=== PATIENT | female | born 1980 | race Caucasian/White ===

== ENCOUNTER → 2018-10-28 17:15 | Outpatient (CLI) | payer SELFPAY ==
[2018-10-28 20:55] LABS: Chlamydia Trachomatis by PCR Negative (Negative); Neisserai gonorrhoeae by PCR Negative (Negative); Probe Check PASS; Sample Adequacy Control PASS; Specimen Processing Control PASS
== END ==
PROVIDERS: Visit Provider Obstetrics & Gynecology
DX: Z11.3 Encounter for screening for infections with a predominantly sexual mode of transmission (principal)
CPT/HCPCS: 87491; 87591

== ENCOUNTER → 2018-11-25 15:41 | Outpatient (CLI) | payer SELFPAY ==
[2018-11-25 17:50] LABS: Absolute Lymphocyte Count 2.12 X10^3/uL (0.83-4.51); Absolute Neutrophil Count 9.3 X10^3/uL (2.0-7.7); Basophil# 0.03 X10^3/uL; Basophil% 0.2 % (0-1); Eosinophil# 0.16 X10^3/uL; Eosinophils% 1.3 % (0-5); Hematocrit 43.3 % (37-47); Lymphocyte # 2.12 X10^3/ul (4.0); Lymphocyte % 17.2 % (19-41); Mean Corp Hgb Conc 32.3 g/dL (32-36); Mean Corpuscular Hgb 28.3 pg (27.0-32.0); Mean Corpuscular Volume 87.7 fL (81-99); Mean Platelet Vol. 10.4 fl (6.2-12.0); Monocyte# 0.64 X10^3/uL; Monocyte% 5.2 % (0-10); NRBC Flagged by Analyzer 0 % (0-5); Neutrophil # 9.28 X10^3/uL (2.7-7.7); Neutrophil % 75.5 % (47-70); Platelet Count 246 K/mm3 (150-450); RBC Distribution Width SD 48.2 fl (35.1-43.9); Red Blood Count 4.94 M/mm3 (4.2-5.4); White Blood Count 12.3 K/mm3 (4.4-11.0)
[2018-11-25 17:51] LABS: Color, Urine Yellow (Yellow); Glucose, Dipstick Normal (Normal); Ketone-Dipstick 5 mg/dl (Negative); Leukocyte Esterase-Dipstick Negative /ul (Negative); Nitrite-Dipstick Negative (Negative); Occult Blood-Urine 10 /ul (Negative); Protein-Dipstick Negative (Negative); Urine Bilirubin Dipstick Negative (Negative); Urine Clarity Cloudy (Clear); Urine Urobilinogen Normal (Normal)
[2018-11-26 02:58] LABS: Prenatal RPR NONREACTIVE (NONREACTIVE)
[2018-11-26 11:30] LABS: HIV - WCH Non-Reactive (Nonreactive); Hepatitis B Surface Antigen Non-Reactive (Nonreactive); Hepatitis C Antibody Non-Reactive (Nonreactive); Rubella IgG > 500.0 IU/mL
== END ==
PROVIDERS: Visit Provider Obstetrics & Gynecology
DX: Z34.81 Encounter for supervision of other normal pregnancy, first trimester (principal)
CPT/HCPCS: 36415; 81002; 84443; 85025; 86703; 86762; 86803; 87340

== ENCOUNTER → 2019-03-04 10:22 | Outpatient (CLI) | payer SELFPAY ==
[2019-03-04 11:12] LABS: Hematocrit 36.8 % (37-47); Hemoglobin 12.2 g/dL (12.0-15.0); Mean Corp Hgb Conc 33.2 g/dL (32-36); Mean Corpuscular Hgb 29.5 pg (27.0-32.0); Mean Corpuscular Volume 89.1 fL (81-99); Mean Platelet Vol. 9.6 fl (6.2-12.0); Platelet Count 231 K/mm3 (150-450); RBC Distribution Width CV 14.2 % (11.6-14.6); Red Blood Count 4.13 M/mm3 (4.2-5.4); White Blood Count 14.1 K/mm3 (4.4-11.0)
[2019-03-04 13:55] LABS: Glucose Challenge Gest 1H 50g 148 mg/dL (70-140)
== END ==
PROVIDERS: Referring Provider Obstetrics & Gynecology; Visit Provider Obstetrics & Gynecology
DX: Z34.90 Encounter for supervision of normal pregnancy, unspecified, unspecified trimester (principal)
CPT/HCPCS: 36415; 82950; 85027

== ENCOUNTER 2019-05-21 09:10 | Inpatient (IN) | payer SELFPAY ==
[2019-05-21] VITALS (14 sets, daily range): BP systolic 109–142; BP diastolic 55–85; PULSE 80–117; RESP 14–18; TEMP 36.4–36.9; O2SAT 92–98; BMI 50.5
[2019-05-21] MEDS: Lactated Ringers 1,000 ML 999 ML IV (09:35)
[2019-05-21 09:58] LABS: Absolute Lymphocyte Count 1.71 X10^3/uL (0.83-4.51); Absolute Neutrophil Count 11.1 X10^3/uL (2.0-7.7); Basophil# 0.03 X10^3/uL; Basophil% 0.2 % (0-1); Eosinophil# 0.16 X10^3/uL; Eosinophils% 1.1 % (0-5); Hematocrit 38.2 % (37-47); Hemoglobin 12.7 g/dL (12.0-15.0); Lymphocyte # 1.71 X10^3/ul (4.0); Lymphocyte % 12.3 % (19-41); Mean Corp Hgb Conc 33.2 g/dL (32-36); Mean Corpuscular Hgb 29.4 pg (27.0-32.0); Mean Corpuscular Volume 88.4 fL (81-99); Mean Platelet Vol. 10.1 fl (6.2-12.0); Monocyte# 0.78 X10^3/uL; Monocyte% 5.6 % (0-10); NRBC Flagged by Analyzer 0 % (0-5); Neutrophil # 11.06 X10^3/uL (2.7-7.7); Neutrophil % 79.4 % (47-70); Platelet Count 229 K/mm3 (150-450); RBC Distribution Width CV 14.6 % (11.6-14.6); RBC Distribution Width SD 46.9 fl (35.1-43.9); Red Blood Count 4.32 M/mm3 (4.2-5.4); White Blood Count 13.9 K/mm3 (4.4-11.0)
[2019-05-21] MEDS: Lactated Ringers 1,000 ML 150 ML IV (10:30)
[2019-05-21] MEDS: Sodium Citrate/Citric Acid 30 ML UDC PO (15:54)
[2019-05-21] MEDS: Cefazolin 2 GM in 0.9% Normal Saline 100 ML IV (16:05)
--- NOTE | 2019-05-21 16:12 | HP.PCM_ITS ---
History and Physical Date of Admission: 05/21/19 [facility] ANTEPARTUM RECORD - HISTORY AND PHYSICAL (05/21/2019) Name: ANKITA NICHOLSON History of This : This is a 38-year-old 2 para 1 patient who presents at 39 weeks gestation for repeat and tubal. care has been uneventful. OB Physician: CARLITOS 's Physician: PED CLIENT SUPPORT ASSOCIATE ...................................................................... : 1980 Age: 38 Address: [address] [place] [address] Phone: (H) [phone] (O) [phone] Insurance Carrier: Emergency Contact: CHRISTIANO NICHOLSON [phone] ...................................................................... Final MATTHEW: 05/28/19 By Ultrasound: 9 weeks 5 days PARITY: (G-Total Pregnancies P-Fullterm,Premature,Induced AB,Spont AB, Ectopics, Multiple,Living) MATTHEW CONFIRMATION: By LMP: 08/21/18 Initial Exam: 05/28/19 By First Ultrasound Exam: 05/28/19 Final MATTHEW: 05/28/19 OB PROBLEM LIST: 3 hour GTT normal AMA Offer testing Declines AFP, CF testing, and cfDNA testing has two cousins with Down Syndrome Hx of gallbladder problems Hx of kidney stones Lives an hour from [place] Prior CS --desires R-LTCCS--with tubal Pt had two sisters with Dwarfism, one was stillborn, and one at age 4 ALLERGIES: NKA MEDICATIONS: 28 mg iron-800 mcg tablet One pill by mouth once a day SOCIAL HISTORY: Smoking - used to smoke but quit Alcohol Use - denies drinking Diet - no particular diet Lifestyle - moderate stress lifestyle Exercise - minimal 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 Illicit Drug Use - denies use of street drugs Sexual Activity - Residence - lives with Place of - [employer] Spouse-Sig Other Name - Christiano Caalaver Spouse-Sig Other Occupation - Services -- Construction Spouse-Sig Other Phone No - [phone] Children Name(s) - Rae(18) PRIOR DELIVERY HISTORY DEL DATE GEST LAB WT LB WT OZ TYPE ANES LABOR TX 17 Jul 18 39 18 6 3 C-Sec Epidural No ANTEPARTUM FLOW CHART ____ VISIT GE RTC FU F F CO U U DATE WK MD WKS HT PN HR M SS BP ED WT CO GL D EF ST __ ____ ___ __ __ ___ __ __ __ ___ __ __ __ ___ __ 02 May 37 JMW 1 37 + + 126/84 sl 250 tr - Apr 36 JMW 1 36 V + + 112/72 sl 247 tr - ft 50 -2 05 Apr JMW 2 33 + + 108/64 sl 250 tr - 13 Mar JMW 3 31 + + 116/76 0 242 tr - Mar 08 JMW 3 27 + + 98/64 0 245 - - 08 Mar 06 JMW 3 25 + + 120/78 tr 243 - - Dec 29 JMW 4 20 + US 120/60 0 239 tr - Nov 22 JMW 4 + 108/70 0 240 - - ANTEPARTUM NOTE(S): May 13 2019: Ctxs-mild, Good FM May 06 2019: GBS Today and LARC form signed. Good FM Apr 15 2019: doing well Mar 25 2019: see note Mar 04 2019: CBC,OGCT Today,URI with Amox 500mg bid x 10 days Feb 17 2019: Glucola/Instructions Given,URI w/cough, Groin Itching Jan 06 2019: feeling well., US OK Nov 25 2018: Feeling well. NOB and visit. COMPREHENSIVE ANTEPARTUM NOTE(S): May 18 2019: H and orders taken to OB. tkg Mar 25 2019: Ankita is here for a appt. She is currently on an antibiotic for respiratory issues, not sure of the name at this time. Baby is moving good, no edema. Urine tr -. MK Nov 25 2018: Ankita is here for her NOB visit at 13 w 5 d, she is a with an MATTHEW of 05/28/2019. She and , Christiano, have a 16 month daughter at home. She shares that they had been for 16 years before getting with their daughter, and she is happy to have another baby. Her daughter was delivered by C/S in [place]; she states that she had a little high blood p ressure, so they decided to induce me, and that as soon as they gave me an epidural my daughter's heart rate went way down , so they did an emergency c- section. Past history updated. Ankita plans to have a repeat C/S at [facility], and will likely formula feed the baby. Ankita and her family live in [place], but she states that she has friends and family who live closer to [place]. She states that she is feeling well, and that nausea of resolved at about 10 weeks GA. Office practice patterns reviewed, including labs that will be collected today; urine tox screen omitted today per order of Dr. Swann. Emergencies/danger signs to report, contacting the office after hours, round ligament pain, reporting suspected UTI's, and common OTC medications approved/not approved for use during reviewed. Ankita quit smoking 2 years ago, and denies use of drugs or ETOH. Genetic Screening form completed, Christiano has two cousins with Down Syndrome, and Ankita had two sisters with Dwarfism, one was stillborn, and the other at age 4. Ankita takes a Plexus multivitamin that contains Folic Acid, and some extra Iron. Encouraged to make sure she has a DHA supplement before the beginning of her third trimester. water and dietary needs reviewed, including limiting weight gain, limiting empty calories, caloric needs, and limiting caffeine to one cup a day. Printed guide for food safety during provided with review. Encouraged physical activity, such as walking, 30 minutes, 5 x/week. Kegel exercises reviewed. Lifting restrictions discussed. Ankita states that she understands all information provided during NOB visit, and has no questions following same. AW Nov 25 2018: (f,*) Cultures negative. NOB and labs today. Is no longer feeling nauseas or having adversions. Is planning a repeat CS with Dr. Sánchez. No questions or concerns. - CH Oct 30 2019: GC and chlamydia NEG. EB Oct 28 2019: ok Oct 28 2019: Ankita presents here today for Missed Menses appointment. 37 y.o. G 2 P 1 previous smoker(quit 2 years ago) with regular menses and LMP of approximately 07-12-19 lasting her average of 4-5 days. Presents here today approximately 9 weeks 4 days with an MATTHEW of 05-29-19. Denies spotting/bleeding thus far. Having tender breasts and nausea daily. Taking OTC Vitamin and Plexus. Educational Materials given. History of all normal pap screenings with last in 2016. Repeat planned for [facility] as previous resulted in for distress in [place] in 07/2017. Medication and Allergy lists up-dated. ASHISH REVIEW OF SYSTEMS: GENERAL - Denies fever, or chills SKIN - Denies rash, new skin lesions, or change in moles EYES - Denies blurred vision, or change in visual acuity EARS - Denies ear pain, or difficulty hearing NOSE - Denies nasal congestion, discharge, or bleeding MOUTH - Denies sore throat, or difficulty swallowing NECK - Denies pain or swelling RESPIRATORY - Denies shortness of breath, cough, wheezing CARDIOVASCULAR - Denies palpitations, chest pain, orthopnea, PND, peripheral edema, syncope or claudication GASTROINTESTINAL - Denies nausea, vomiting, diarrhea, constipation, Denies abdominal pain, melena and or bright red blood GENITOURINARY - Denies dysuria, frequency of urination, urgency, or hesitancy MUSCULOSKELETAL - Denies joint or muscle pain, or back pain NEUROLOGICAL - Denies localized numbness, weakness, or tingling PSYCHIATRIC - Denies depression, anxiety, substance abuse or suicide attempts ENDOCRINE - Denies heat or cold intolerance, weight loss or gain, increasing thirst HEMATO-IMMUNOLOGIC - Denies easy bruising, bleeding, oral ulcerations or recurrent infections GENETICS SCREENING: Age 35+ years: Yes Thalassemia: No Neural Tube Defect: No Down Syndrome: Yes-'s cousins AKUA-SACHS: No Sickle Cell Disease: No Hemophilia: No Musc. Dystrophy: No Cystic Fibrosis: No-declines screening Cataño Chorea: No Mental Retardation: No Fragile X: No Other genetic: No Other defects: No SABs/still births: No Drugs since LMP: No INFECTION HISTORY: High risk AIDS: No High risk Hepatitis: No Exposed to TB: No Exposed to Herpes: No Rash/viral illness since LMP: No History of STD: No MENSTRUAL HISTORY: *Menses Amount/Duration: 3-4 daysMenses Regularity: RegularFrequency: 28Menarche (Age Onset): 10* PAST SUMMARY: PARITY: 1. Total Pregnancies............ 2 2. Full Term Pregnancies........ 1 3. Premature.................... 0 4. Abortions - Induced.......... 0 5. Abortions - Spontaneous...... 0 6. Ectopics..................... 0 7. Multiple Births.............. 0 8. Living Children.............. 1 PAST #1: Date of :.................. 07/27/17 Gestation Weeks:................ 39 Length of labor(hours):......... 18 Sex:............................ F Weight-lbs:............... 6 Weight-oz:................ 3 Type of Delivery:............... C-Sect Type of Anesthesia:............. Epidural Place of Delivery:.............. COL Treatment of Labor?:.... No Comment: IOL, HTN. DISTRESS PHYSICAL EXAMINATION General Appearence: 38 yo female in no acute distress Vital Signs: AF, VSS Heart: RRR without rubs or gallops Lungs: CTA x 2 Breasts: deferred Abdomen: gravid Pelvis: Cervix: Fingertip, 50% effaced Presentation: cephalic Station: -2 Fetus: Size: AGA Movement: present Heart: present Labs for : ANKITA CAALAVER since 08/31/2018 ORDER DATEIN DESCRIPTION VALUE UNITS RANGE A+ COMMENT TYPE AND SCREEN 05/21/19 Reason for Type AND Screen/Red Cells: SURGERY Type of Surgery: [facility]~[address] [place], [address]~ BLOOD TYPE GEL A POSITIVE N ANTIBODY SCREEN NEGATIVE N Reviewed by DARREN CBC W/DIFF, AUTOMATED 05/21/19 NOTE Original Ordering Provider: Aditya Swann WBC 13.9 K/mm3 4.4-11.0 H RBC 4.32 M/mm3 4.2-5.4 HGB 12.7 g/dL 12.0-15.0 HCT 38.2 % 37-47 MCV 88.4 fL 81-99 MCH 29.4 pg 27.0-32.0 MCHC 33.2 g/dL 32-36 RDW CV 14.6 % 11.6-14.6 RDW SD 46.9 fl 35.1-43.9 H PLT 229 K/mm3 150-450 MPV 10.1 fl 6.2-12.0 NEUT% 79.4 % 47-70 H LY% 12.3 % 19-41 L MONO% 5.6 % 0-10 EO% 1.1 % 0-5 BASO% 0.2 % 0-1 IM GRAN % 1.400 % 0.0-0.9 H IG% - Immature Granulocytes (promyelocytes, myelocytes and metamyelocytes) > 1% indicates that a LEFT SHIFT is Present. ABSOLUTE NEUT 11.1 X10 3/uL 2.0-7.7 H ABSOLUTE LYMPH 1.71 X10 3/uL 0.83-4.51 NRBC, FLAGGED 0 % 0-5 Reviewed by DARREN GLUCOSE TOLERANCE-3 HOUR 03/09/19 NOTE Original Ordering Provider: ADITYA SWANN GLUCOSE TOLERANCE-3 HOUR 3 HOUR GLUCOSE TOLERANCE Reference Range BLOOD Adult(non) Adult() FASTING _96 mg/dl <100 mg/dL 95 mg/dL 03/09/19.0801.JLN. . . 1 HOUR _193 mg/dl 70-115 mg/dL 180 mg/dL 03/09/19.1210.JLN. 2 HOUR _174 mg/dl <140 mg/dL 155 mg/dL 03/09/19.1209.JLN. 3 HOUR _77 mg/dl 70-115 mg/dL 140 mg/dL 03/09/19.JLN. URINE-GLUCOSE Fasting......... _NA (NORMAL) 03/09/19.JLN. 1 hour.......... _NA (NORMAL) 03/09/19.JLN. 2 hours......... _NA (NORMAL) 03/09/19.JLN. 3 hours......... _NA (NORMAL) 03/09/19.JLN. URINE-KETONES Fasting......... _NA (NEGATIVE) 03/09/19.JLN. 1 hour.......... _NA (NEGATIVE) 03/09/19.JLN. 2 hour.......... _NA (NEGATIVE) 03/09/19.JLN. 3 hour.......... _NA (NEGATIVE) 03/09/19.JLN. Reviewed by ADITYA GLUCOSE CHALLENGE GEST 1H 50G 03/04/19 NOTE Original Ordering Provider: Aditya Swann GLU GEST 50G 1H 148 mg/dL 70-140 H Reviewed by ADITYA CBC-COMPLETE BLOOD CNT NO DIFF 03/04/19 NOTE Original Ordering Provider: Aditya Swann WBC 14.1 K/mm3 4.4-11.0 H RBC 4.13 M/mm3 4.2-5.4 L HGB 12.2 g/dL 12.0-15.0 HCT 36.8 % 37-47 L MCV 89.1 fL 81-99 MCH 29.5 pg 27.0-32.0 MCHC 33.2 g/dL 32-36 RDW CV 14.2 % 11.6-14.6 RDW SD 46.0 fl 35.1-43.9 H PLT 231 K/mm3 150-450 MPV 9.6 fl 6.2-12.0 Reviewed by ADITYA HEPATITIS C ANTIBODY 11/25/18 NOTE Original Ordering Provider: Aditya Swann HEPATITIS C AB Non-Reactive Nonreactive Non Reactive: < 0.8 Equivocal: >/= 0.8 to < 1.0 Reactive: >/= 1.0 The CDC recommends that a reactive/equivocal HCV antibody result be followed up by the HCV Nucleic Acid Amplification test (680210) w Reviewed by ADITYA HEPATITIS B SURFACE ANTIGEN 11/25/18 NOTE Original Ordering Provider: Aditya Swann HEPB SURFACE AG Non-Reactive Nonreactive Reviewed by ADITYA HIV - [facility] 11/25/18 NOTE Original Ordering Provider: Aditya Swann HIV - [facility] Non-Reactive Nonreactive Reviewed by ADITYA RUBELLA IGG 11/25/18 NOTE Original Ordering Provider: Aditya Swann RUBELLA IGG > 500.0 IU/mL Antibody results Interpretation of Immune Status < 5 IU/ml Presumed Non-immune 5 - < 10 IU/ml Equivocal > or = 10 IU/ml Presumed Immune Reviewed by ADITYA RPR 11/25/18 NOTE Original Ordering Provider: Aditya Swann RPR NONREACTIVE NONREACTIVE Reviewed by ADITYA T AND S-NO CHARGE W/PNP 11/25/18 Reason for Type AND Screen/Red Cells: Surgery? [facility]~[address] [place], [address]~ BLOOD TYPE GEL A POSITIVE N AB SCREEN GEL NEGATIVE N Reviewed by ADITYA THYROID STIM HORMONE (TSH) 11/25/18 NOTE Original Ordering Provider: Aditya Swann TSH 0.70 uIU/mL 0.358-3.74 Reviewed by ADITYA URINALYSIS, ROUTINE (DIPSTICK) 11/25/18 NOTE Original Ordering Provider: Aditya Swann COLOR Yellow Yellow CLARITY Cloudy Clear GLUCOSE, UR Normal mg/dl Normal BILIRUBIN URINE Negative mg/dL Negative KETONE UR 5 mg/dl Negative H SP.GR. DIPSTX 1.030 1.002-1.030 PH UR 5.0 5.0 - 8.0 w PROT DIPSTX Negative mg/dl Negative UROBILI Normal mg/dl Normal NITRITE UR Negative Negative OCCULT BLOOD-UR 10 /ul Negative H LEUK ESTERASE Negative /ul Negative Reviewed by ADITYA CBC W/DIFF, AUTOMATED 11/25/18 NOTE Original Ordering Provider: Aditya Swann WBC 12.3 K/mm3 4.4-11.0 H RBC 4.94 M/mm3 4.2-5.4 HGB 14.0 g/dL 12.0-15.0 HCT 43.3 % 37-47 MCV 87.7 fL 81-99 MCH 28.3 pg 27.0-32.0 MCHC 32.3 g/dL 32-36 RDW CV 15.0 % 11.6-14.6 H RDW SD 48.2 fl 35.1-43.9 H PLT 246 K/mm3 150-450 MPV 10.4 fl 6.2-12.0 NEUT% 75.5 % 47-70 H LY% 17.2 % 19-41 L MONO% 5.2 % 0-10 EO% 1.3 % 0-5 BASO% 0.2 % 0-1 IM GRAN % 0.600 % 0.0-0.9 IG% - Immature Granulocytes (promyelocytes, myelocytes and metamyelocytes) > 1% indicates that a LEFT SHIFT is Present. ABSOLUTE NEUT 9.3 X10 3/uL 2.0-7.7 H ABSOLUTE LYMPH 2.12 X10 3/uL 0.83-4.51 NRBC, FLAGGED 0 % 0-5 Reviewed by ADITYA MARTINEZ/SATYA [facility] BY PCR 10/28/18 NOTE Original Ordering Provider: Aditya Swann [facility] PCR Negative Negative NG BY PCR Negative Negative Reviewed by KRISTIN Impression /Plan: 39-week intrauterine for repeat and tubal. All questions have been answered. Preparations in progress for delivery.
--- NOTE | 2019-05-21 17:09 | OP.PCM_ITS ---
Delivery Classification: Scheduled Final MATTHEW: 05/28/19 Gestational age: 39 Weeks and 0 Days brake liner: Grace Elkins Type of Anesthesia:: Spinal - With Duramorph Implants Used: None Date of Procedure: 05/21/19 Pre-Operative Diagnosis: Prior Section and Desires Permanent Sterilization Post-Operative Diagnosis: Prior Section and Desires Permanent Sterilization Description of Procedure: Surgeon: Corby Swann MD, FACOG Anesthesia: Everardo Lilly CRNA Anesthesia: Spinal with Duramorph Procedure: Repeat Low Transverse Cervical Caesarean Section And Bilateral Tubal Occlusion with Filshie Clips Findings: Viable female infant with Apgars of 8/9 in occiput anterior presen tation with clear amniotic fluid and normal three-vessel placenta. Indication: This is a 38-year-old who presents for her second at 39 weeks gestation. care has otherwise been uneventful. She also desires permanent sterilization. She has been counseled regarding the permanent nature of this procedure, the failure rate of 1 to 2%, and the availability of other nonpermanent control options. The patient has been counseled regarding the risk and indications of this procedure including the possibility of bleeding infection and injury to surrounding structures such as bowel bladder. All questions were answered. Procedure: Patient was taken to the operating room where after spinal anesthesia was placed, the patient was prepped and draped in usual sterile fashion and a Machuca catheter was placed. The abdomen was entered through the patient's prior Pfannenstiel incision and peritoneum was entered bluntly. After developing a bladder flap on the lower uterine segment a low transverse incision was made on the uterus and head was easily delivered onto the operative field the nose mouth and oropharynx were bulb suctioned. Subsequently a viable female was born with Apgars of 8/9. The infant was noted to cry move all extremities vigorously on the operative field. The umbilical cord was doubly clamped and ligated and infant handed to the nursery personnel who were present for the delivery. Placenta was delivered and noted to be 3 vessels and normal. Uterus was exteriorized and remaining placental tissue was removed. The uterus was then closed in 2 layers first with running locked 0 Vicryl suture followed by a second imbricating layer with 0 Vicryl suture. 0 Vicryl suture was then used in a horizontal mattress interrupted fashion to affect final hemostasis of the uterine incision line. Normal fallopian tubes and ovaries were visualized and Filshie clips were placed approximately 2 cm from the uterine fundus on each fallopian tube after identifying each fimbriated end. The uterus was returned to the pelvis. Hemostasis was noted and rectus abdominis muscles were reapproximated in the midline with interrupted Number 0 Vicryl suture in a horizontal mattress fashion. Fascia was closed with running Number 1 PDS Strata fix suture. Subcutaneous tissue was irrigated with copious amounts of saline solution and then closed with running 3-0 Vicryl suture. Skin was closed with 4-0 monocryl suture in a running subcuticular fashion. Steri strips and a Mepilex dressing were placed across the incision. The patient tolerated the procedure well and was taken to the recovery room in satisfactory condition. Sponge, needle, and instrument counts were all reportedly correct. EBL was less than 500 cc. Ancef 2 gms IV was given prior to the procedure. Spicemen to Pathology: None Complications: None Amniotic Fluid Description: Clear Placenta Disposition: [facility] Specimen(s) sent to pathology: None Drain: Machuca to straight drain Fluids Replaced: Crystalloid Cord Entanglement: None Cord Vessel Description: 3 Vessels Esitmated Blood Loss (ml): 500 cc Infant Gender: Female (1 minute): 8 (5 minute): 9 Antibiotic Given: Ancef 2 grams IV x1 Pt instructed on risks of surgery: Bleeding, Infection, Permanency, Failure Rate of 1 to 2%, Injury to surrounding structure(s) including bowel and bladder, Availability of other non-permanent control options Complications: None - Admit VTE Documentation VTE Present on Admission: Yes VTE Mechan Device Prophylaxis: SCD's VTE Pharm Prophylaxis ordered?: Yes
--- NOTE | 2019-05-21 17:17 | PCM.DCCSEC ---
Discharge Diet: No Restrictions Discharge Activity: May Not Drive - for 2 weeks, May not drive while taking narcotic pain medications., May Shower, May Take a Tub Bath - in 7 days May resume sexual activity in: 4-6 weeks Lifting Restrictions: 20 pounds Additional Activity Instructions:: Nothing in the vagina for 4-6 weeks. You may return to work/school in 6 weeks. Call your doctor if your incision/area has: Continuous Slow Oozing, Sudden Increased Bleeding, Increased Pain/ Swelling, Increased Redness, Foul Smelling Discharge Call your doctor if you observe: Fever of 101 or Higher, Inability to urinate, Inability to have a bowel movement, Using more than one pad per hour Additional Instructions: If you experience any of the following, contact your healthcare provider. Bleeding that soaks a pad every hour for 2 hours Fever 100.4 or higher Unrelieved incision or abdominal pain Swelling, redness, discharge or bleeding from your incision or episiotomy site Your incision begins to separate Problems urinating (including inability to urinate or burning while urinating). Visual changes Severe headache Flu-like symptoms Pain or redness in one of both of your breasts Pain, warmth, tenderness or swelling in your legs, especially the calf area Frequent nausea and vomiting Symptoms of depression or anxiety If you experience any of the following, call 911 or go to the nearest Emergency Room. Chest pain Problems breathing Seizure activity Partial or complete paralysis of a body part, slurred speech, weakness or drooping of the face, or a sudden inability to walk or hold your balance Allergies/Adverse Reactions: Allergies No Known Allergies Allergy (Verified 05/21/19 09:19) Medications to take at Discharge Docusate Sodium [Colace] 100 mg PO BID PRN PRN #60 cap 05/21/19 Lactobacillus Acidophilus [Probiotic] 2 ea PO DAILY 05/21/19 Oxycodone [Oxyir] 5 mg PO Q6H PRN PRN 7 Days #20 tab 05/21/19 Vits [Prenatabs FA ] 1 tab PO DAILY 05/21/19 The following prescriptions were given: Docusate Sodium [Colace] 100 mg PO BID PRN PRN #60 cap PRN Reason: Constipation Transmission Status: Received by [facility] [place] [address] JUNIOR Briones Oxycodone [Oxyir] 5 mg PO Q6H PRN PRN 7 Days #20 tab PRN Reason: Pain Score 6-10/10 Transmission Status: Received by [id number] [facility] Follow-Up: Call to make an appointment with your doctor for an incision check in 1-2 weeks. You will also need a 6 week post- follow up appointment. Test results from this visit will be discussed in further detail at your follow-up appointment, if applicable. Please Follow Up With: Corby Swann MD - [phone] When: Call to make an appointment for an incision check in 2 weeks. Primary Care Physician: Care Physician,No Primary [Primary Care Provider] -
[2019-05-21] MEDS: Oxytocin 30 units/NS 500 ml 30 UNITS/500 ML IV.SOLN 167 UNITS IV (17:37)
[2019-05-21] MEDS: Lactated Ringers 1,000 ML 100 ML IV (20:51)
[2019-05-21] MEDS: Ketorolac 30 MG/ML Syringe IV (23:39)
[2019-05-22] VITALS (13 sets, daily range): BP systolic 91–154; BP diastolic 45–89; PULSE 77–96; RESP 16–18; TEMP 36.2–36.8; O2SAT 95–97
[2019-05-22] MEDS: Cefazolin 1 GM/50 ML BAG IV ×2 (00:18→07:59)
[2019-05-22] MEDS: Ketorolac 30 MG/ML Syringe IV ×3 (05:03→17:49)
[2019-05-22 05:35] LABS: Hematocrit 34.9 % (37-47); Hemoglobin 11.6 g/dL (12.0-15.0); Mean Corp Hgb Conc 33.2 g/dL (32-36); Mean Corpuscular Hgb 29.8 pg (27.0-32.0); Mean Corpuscular Volume 89.7 fL (81-99); Mean Platelet Vol. 9.8 fl (6.2-12.0); Platelet Count 192 K/mm3 (150-450); RBC Distribution Width CV 14.3 % (11.6-14.6); RBC Distribution Width SD 46.5 fl (35.1-43.9); Red Blood Count 3.89 M/mm3 (4.2-5.4); White Blood Count 13.5 K/mm3 (4.4-11.0)
[2019-05-22] MEDS: Enoxaparin 40 MG/0.4 ML Syringe SC (09:54)
--- NOTE | 2019-05-22 11:15 | PCM.PN.OB ---
Subjective: Patient without complaints. Breast-feeding initially but now bottlefeeding. Minimal vaginal bleeding. Tolerating diet well. Denies flatus. Objective: Wound covered with Mepilex dressing is dry without blood on bandage. Good urine output. Hemoglobin okay. - Physical Exam Vitals/I&O's: Vital Signs Temp Pulse Resp BP Pulse Ox 97.5 F L 91 16 99/45 L 96 05/22/19 08:01 05/22/19 09:53 05/22/19 09:53 05/22/19 08:01 05/22/19 09:53 Oxygen Delivery Method Room Air Weight: 250 lb 0.067 oz Body Mass Index (BMI) 50.5 Intake and Output for Last 24 Hours 05/20/19 05/21/19 05/22/19 23:59 23:59 23:59 Intake Total 2360.75 / 2360.75 930 / 930 Output Total 300 / 300 900 / 900 Balance 2060.75 / 2060.75 30 / 30 Laboratory Results 05/21/19 09:35: Blood Type A POSITIVE, Antibody Screen NEGATIVE 05/22/19 05:10: WBC 13.5 H, RBC 3.89 L, Hgb 11.6 L, Hct 34.9 L, MCV 89.7, MCH 29.8, MCHC 33.2, RDW Std Deviation 46.5 H, RDW Coeff of Lilo 14.3, Plt Count 192, MPV 9.8 Current Medications Acetaminophen (Tylenol) 1,000 mg PO Q8H PRN PRN Reason: Pain Score 1-3/10 Bisacodyl (Dulcolax) 10 mg RECTAL UD PRN PRN Reason: If no BM Diphenhydramine HCl (Benadryl) 25 mg PO Q6H PRN PRN PRN Reason: ITCHING Stop: 05/22/19 17:36 Enoxaparin Sodium (Lovenox) 40 mg SC DAILY ULISES Last Admin: 05/22/19 09:54 Dose: 40 mg Documented by: Hydrocortisone (Hytone) 1 applic TOPICAL TID PRN PRN; Protocol PRN Reason: Discomfort Naloxone HCl 4 mg/ Dextrose 504 mls @ 0 mls/hr IV .Q0M PRN; Protocol PRN Reason: Respiratory depression Ibuprofen (Motrin) 600 mg PO Q6H PRN PRN PRN Reason: Pain Score 1-3/10 Ketorolac Tromethamine (Toradol (Bkc)) 30 mg IV Q6 ULISES Stop: 05/23/19 12:01 Last Admin: 05/22/19 05:03 Dose: 30 mg Documented by: Methylergonovine Maleate (Methergine) 0.2 mg IM X1 PRN PRN Reason: Uterine Atony Naloxone HCl (Narcan) 0.02 mg IV Q1M PRN PRN Reason: RR <10 and pt unresponsive Ondansetron HCl (Zofran) 4 mg IV Q4H PRN PRN PRN Reason: Nausea Oxycodone HCl (Oxyir) 5 - 10 mg PO Q4H PRN PRN PRN Reason: Pain Score 4-10/10 Prochlorperazine Edisylate (Compazine Iv) 10 mg IV Q6H PRN PRN PRN Reason: NAUSEA Senna/Docusate Sodium (Senokot-S, Jmuana-Colace) 0 tablet PO DAILY PRN PRN Reason: Constipation Simethicone (Mylicon) 80 mg PO PCHS PRN PRN Reason: Indigestion/stomach pain Sodium Chloride () 5 - 15 ml IV UD PRN PRN Reason: SALINE FLUSH Medical Necessity - Tobacco Use Smoking Status: Former smoker Assessment/Plan Doing well postoperative day #1 status post repeat section and tubal. Continuing present care. Anticipate release to home tomorrow.
[2019-05-22] MEDS: 0.9% Saline Lock 10 ML Syringe IV (11:36)
[2019-05-23] MEDS: 0.9% Saline Lock 10 ML Syringe IV ×2 (00:34→05:42)
[2019-05-23] MEDS: Ketorolac 30 MG/ML Syringe IV ×2 (00:34→05:41)
[2019-05-23 02:20] VITALS: BP 107/65; PULSE 79; RESP 16; TEMP 36.8
[2019-05-23 08:12] VITALS: BP 114/77; PULSE 93; RESP 16; TEMP 36.7; O2SAT 96
--- NOTE | 2019-05-23 11:27 | PCM.PN.OB ---
Subjective: Patient without complaints. Tolerating diet well. Positive flatus. Pain well controlled. Minimal vaginal bleeding. Wants to go home today. Objective: Mepilex dressing is clean, dry, intact. Good urine output. - Physical Exam Vitals/I&O's: Vital Signs Temp Pulse Resp BP Pulse Ox 98.1 F 93 16 114/77 96 05/23/19 08:12 05/23/19 08:12 05/23/19 08:12 05/23/19 08:12 05/23/19 08:12 Oxygen Delivery Method Room Air Weight: 250 lb 0.067 oz Body Mass Index (BMI) 50.5 Intake and Output for Last 24 Hours 05/21/19 05/22/19 05/23/19 23:59 23:59 23:59 Intake Total 2360.75 / 2360.75 930 / 930 Output Total 300 / 300 1100 / 1100 Balance 2060.75 / 2060.75 -170 / -170 Current Medications Acetaminophen (Tylenol) 1,000 mg PO Q8H PRN PRN Reason: Pain Score 1-3/10 Bisacodyl (Dulcolax) 10 mg RECTAL UD PRN PRN Reason: If no BM Enoxaparin Sodium (Lovenox) 40 mg SC DAILY ULISES Last Admin: 05/22/19 09:54 Dose: 40 mg Documented by: Hydrocortisone (Hytone) 1 applic TOPICAL TID PRN PRN; Protocol PRN Reason: Discomfort Naloxone HCl 4 mg/ Dextrose 504 mls @ 0 mls/hr IV .Q0M PRN; Protocol PRN Reason: Respiratory depression Ibuprofen (Motrin) 600 mg PO Q6H PRN PRN PRN Reason: Pain Score 1-3/10 Methylergonovine Maleate (Methergine) 0.2 mg IM X1 PRN PRN Reason: Uterine Atony Naloxone HCl (Narcan) 0.02 mg IV Q1M PRN PRN Reason: RR <10 and pt unresponsive Ondansetron HCl (Zofran) 4 mg IV Q4H PRN PRN PRN Reason: Nausea Oxycodone HCl (Oxyir) 5 - 10 mg PO Q4H PRN PRN PRN Reason: Pain Score 4-10/10 Prochlorperazine Edisylate (Compazine Iv) 10 mg IV Q6H PRN PRN PRN Reason: NAUSEA Senna/Docusate Sodium (Senokot-S, Jumana-Colace) 0 tablet PO DAILY PRN PRN Reason: Constipation Simethicone (Mylicon) 80 mg PO PCHS PRN PRN Reason: Indigestion/stomach pain Last Admin: 05/22/19 19:40 Dose: 80 mg Documented by: Sodium Chloride () 5 - 15 ml IV UD PRN PRN Reason: SALINE FLUSH Last Admin: 05/23/19 05:42 Dose: 10 ml Documented by: Medical Necessity - Tobacco Use Smoking Status: Former smoker Assessment/Plan Doing well postoperative day #2 status post repeat and bilateral tubal occlusion with Filshie clips. Will remove Mepilex dressing on her own during the next several days. Will discharge to home with routine instructions.
[2019-05-23] MEDS: Enoxaparin 40 MG/0.4 ML Syringe SC (11:47)
[2019-05-23] MEDS: Ibuprofen 600 MG Tablet PO (12:04)
== END 2019-05-23 11:35 | disposition home or self-care (01) | DRG 785 ==
PROVIDERS: Admitting Provider Obstetrics & Gynecology; Referring Provider Obstetrics & Gynecology; Visit Provider Obstetrics & Gynecology
PROC: 10D00Z1 Extraction of Products of Conception, Low, Open Approach (ICD-10-PCS; CPT 59514; principal; 2019-05-21 11:45)
DX: O34.211 Maternal care for low transverse scar from previous cesarean delivery (principal); Z37.0 Single live birth; Z3A.39 39 weeks gestation of pregnancy; Z30.2 Encounter for sterilization; Z82.79 Family history of other congenital malformations, deformations and chromosomal abnormalities; Z87.891 Personal history of nicotine dependence
CPT/HCPCS: 85025; 85027; 86850; 86900; 86901; 99218; J7120; A4216; G0378; J2405

== ENCOUNTER → 2019-07-22 | Outpatient (CLI) | payer SELFPAY ==
[2019-05-21 09:25] VITALS: BMI 50.5
[2019-07-28 05:20] LABS: HPV Reflexed? NOT INDICATED
== END | disposition home or self-care (01) ==
LOC: LABSPEC 16:08
PROVIDERS: Referring Provider Obstetrics & Gynecology; Visit Provider Obstetrics & Gynecology
DX: Z12.4 Encounter for screening for malignant neoplasm of cervix (principal)
CPT/HCPCS: 88175; G0145

== ENCOUNTER 2023-12-26 05:50 | Day surgery (SDC) | payer OTHER, SELFPAY ==
[2023-12-26] VITALS (9 sets, daily range): BP systolic 124–148; BP diastolic 83–93; PULSE 79–108; RESP 16–18; TEMP 36.4–37.2; O2SAT 93–100; BMI 51.6
[2023-12-26] MEDS: Lactated Ringers 1,000 ML 15 ML IV (06:15)
--- NOTE | 2023-12-26 06:20 | EKG12_ITS ---
Test Reason : PREOP Blood Pressure : */* mmHG Vent. Rate : 86 BPM Atrial Rate : 86 BPM P-R Int : 126 ms QRS Dur : 74 ms QT Int : 382 ms P-R-T Axes : 35 -4 21 degrees QTcB Int : 457 ms Normal sinus rhythm Minimal voltage criteria for LVH, may be normal variant ( R in aVL ) Borderline ECG No previous ECGs available Confirmed by ISSA BARBOSA, THI ([id number]), traffic control flagger LEIGH ANN MAJANO ([id number]) on 12/30/2023 8:18:54 A M Referred By: Ana Goldstein Confirmed By: THI PARSONS MD
[2023-12-26 06:24] LABS: Internal QC Validated? YES +Cl - CLEAR BKGD; Pregnancy, Urine Negative Negative
--- NOTE | 2023-12-26 06:58 | PCM.HP.BLA ---
History and Physical Date of Admission: 12/26/23 Date of Service: 12/04/23 MR#: [id number] Acct: [id number] Name: ANKITA ELMORE Rep #: [id number] : 1980 Provider: Dr. Ana Goldstein MD Age/Sex: 42/F Location: [facility] Status: Signed Intake Vital Signs 12/03/2408:21 Height 4 ft 11 in Weight: 257 lb BMI 51.9 BP 124/91 H Blood Pressure Location Rt brachial Position Sitting Respiration 17 Pulse 92 Pulse Source Monitor Temp 97.2 F L Temp Source Temporal Pulse Oximetry (%) 98 Oxygen Delivery Method room air Intake Visit Reasons: UMBILICAL HERNIA Chief Complaint: umbilical hernia Is patient in pain?: No Allergies No Known Allergies Allergy (Verified 12/04/23 09:23) Medications ?Medication ?Instructions ?Recorded ?Confirmed ?Type docusate sodium 100 mg capsule 100 mg PO BID PRN PRN Constipation 05/21/19 Rx #60 caps plexus PO 12/04/23 History PFSH Surgical History (Updated 12/04/23 @ 10:[address] Ana Goldstein MD) delivery delivered Family History (Updated 12/04/23 @ 09:20 by Abena Varner) Father DiabetesMother HypertensionBrother Hypertension Social History (Updated 12/04/23 @ 09:21 by Abena Varner) Smoking Status: Former smoker alcohol intake: current alcohol intake frequency: holidays/special occasions only HPI HPI HPI: 42-year-old female presents due to umbilical hernia. Patient states she has had a spot for years but the last 6 months been causing her more discomfort. Patient states that discomfort sometimes we off to the left of the umbilicus. Patient is able to reduce but sometimes it takes a little while to get it in. Patient does have some nausea sometimes with the pain denies any vomiting, patient is having bowel function daily. Only abdominal surgery is ROS General General: No weight change, appetite, fatigue, colon cancer or breast cancer HEENT HEENT: No difficulty swallowing, eye injury, eye surgery, swollen glands or hoarseness Endo Endocrine: No thyroid disease, diabetes mellitus, thyroid cancer, Hair loss, heat intolerance or cold intolerance Skin Skin: No rash or changing moles Musc Musculoskeletal: No back problems, arthritis, rheumatoid arthritis, gout or joint pain Cardio Cardiovascular: No murmur, pacemaker, heart disease, atrial fibrillation, high blood pressure, heart attack, heart stent, palpitations, shortness of breat with exertion or chest pain Psych Psychiatric: No depression, anxiety or hearing voices Resp Respiratory: No shortness of breath, No sleep apnea, No cough, No COPD, No asthma, No emphysema and No wheezing Gastro Gastrointestinal: Yes abdominal pain, No nausea or vomiting, No diarrhea, No constipation, No blood in stool, No acid reflux, No hemorrhoids, No ulcers, Yes gallbladder problem and No black,tarry stools Jose Hematologic: No blood thinners, No blood disorders, No bleeding, No anemia and No blood clots Neuro Neurologic: No numbness and No tingling Exam Const General: cooperative, healthy appearing, comfortable and no acute distress Nutritional Appearance: obese HENMT Head: normocephalic and atraumatic Neck Neck: supple Resp Effort & Inspection: normal respiratory effort Cardio Rate: regular rate GI Inspection: non-distended Palpation: soft, hernia umbilical (Reducible about 1 cm) and nontender Skin General: no rashes or lesions noted Neuro General: CN's II-XI intact bilaterally Extrem General: normal to inspection Psych Mental Status: mental status grossly normal Attitude: cooperative Assessment and Plan Assessment and Plan (1) Umbilical hernia: Status: Acute Plan Plan to do an open umbilical hernia repair with mesh. Reviewed the procedure with the patient including the risks, including but not limited to infection, bleeding, injury to the small bowel, and recurrence. All questions were answered. Ana Goldstein M.D. Pager: [phone] [facility] [address] [place] [address], [address] [place] [address] Office: [phone] Coding Level of Care Code Off vis,new,level 3 Diagnoses Umbilical hernia K42.9 12/04/23 1005 <Electronically signed by Ana Goldstein MD> Date Ana Goldstein MD
--- NOTE | 2023-12-26 07:02 | PRE.ANES_ITS ---
ASA Classification* ASA Classification ASA Classification: 3 Assessment & Plan Anesthesia* Anesthesia Assessment Anesthesia Assessment: Discussed sedation and/or anesthesia options, risks, benefits, and alternatives with patient/parents/legal guardian/POA. Questions invited. The patient/parents/legal guardian/POA seems to understand and agrees to proceed with anesthesia plan. Reviewed the physical assessment, medical history, allergy history and patient home medications list prior to surgery/procedure/anesthetic and documented any changes. Performed airway and anesthesia risk assessments. Anesthesia Type Anesthesia Type: General Anesthesia Focused Assessment* Temperature: 98.9 F Pulse Rate: 87 Blood Pressure: 148/90 Respiratory Rate: 16 Pulse Ox: 100 Airway Assessment Mouth opens: >3 cm Mallampati Score: II Focused Labs Anesthesia Preop lab: CBC WBC 13.5 K/mm3 (4.4-11.0) H 05/22/19 05:10 RBC 3.89 M/mm3 (4.2-5.4) L 05/22/19 05:10 Hgb 11.6 g/dL (12.0-15.0) L 05/22/19 05:10 Hct 34.9 % (37-47) L 05/22/19 05:10 Plt Count 192 K/mm3 (150-450) 05/22/19 05:10 CHEMISTRY Potassium Pending 12/26/23 06:30 Sodium Pending 12/26/23 06:30 BUN Pending 12/26/23 06:30 Creatinine Pending 12/26/23 06:30 Glucose Pending 12/26/23 06:30 TSH 0.70 uIU/mL (0.358-3.74) 11/25/18 16:10 COAG Urine Test Negative Negative 12/26/23 06:10 Pre-Assessment Diagnosis/Proposed Procedure Planned Operative Procedure(s): OPEN UMBICIAL HERNIA REPAIR WITH MESH Anesthesia History 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 When Was Last Pacemaker Check QUESTION #4 FULL TEXT: You/Your Family Experience fever (hyperthermia) with Anesthesia Last Oral Intake Last Oral intake: Last Oral Intake NPO since 23:00 12/26/23 06:35 Meds taken in AM with sips of water? Meds patient instructed to take am of surgery PONV PONV - b2b sales professional: PONV - b2b sales professional Female Yes 12/15/23 14:09 HX of Motion Sickness Yes 12/15/23 14:09 HX of N/V After Surgery No 12/15/23 14:09 Non-Smoker Yes 12/15/23 14:09 Duration of Surgery greater Yes 12/15/23 14:09 than 60 minutes Number of Risk Factors 4 12/15/23 14:09 PONV Score Severe Risk 12/15/23 14:09 Height & Weight Height & Weight: Anesthesia: Height & Weight Height 4 ft 11 in 12/26/23 06:35 Weight: 116 kg 12/26/23 06:35 Body Mass Index (BMI) 51.6 12/26/23 06:35 Respiratory Assessment Respiratory Assessment - b2b sales professional: Respiratory Tract Infection Hx - b2b sales professional Hx Respiratory Tract Infection No 12/15/23 14:09 STOP Sleep Apnea STOP Sleep Apnea - b2b sales professional: STOP Sleep Apnea - b2b sales professional Hx Hypertension No 12/15/23 14:09 Hx Sleep Apnea No 12/15/23 14:09 CPAP BIPAP Do you snore loudly (louder Yes 12/15/23 14:09 than talking or can be heard Do you often feel tired/ No 12/15/23 14:09 fatigued/ sleepy during daytime? Has anyone observed you stop No 12/15/23 14:09 breathing during sleep? STOP Results Negative 12/15/23 14:09 QUESTION #5 FULL TEXT : Do you snore loudly (louder than talking or can be heard through closed doors)? 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 Specify any problems Hx of Preganancy in last 3 No 12/15/23 14:09 Months Nurse Filling Out Transfusion DSCHRIBER 12/15/23 14:09 & Questions: Date: 12/15/23 12/15/23 14:09 Time: 14:11 12/15/23 14:09 Patient unable to answer at this time (ie. confused, unrespo /Reproduction History /Reproductive History - b2b sales professional: /Reproductive Hx- b2b sales professional Hx Now No 12/15/23 14:09 Gestational Age (in weeks): EDC: Hx Hx Para Hx Section SAB No 12/15/23 14:09 Active Medications Active Medications: Current Medications Generic Name Dose Route Start Last Admin Trade Name Freq PRN Reason Stop Dose Admin Cefazolin Sodium 3 gm/ N/A 30 mls @ 600 mls/hr 12/26/23 07:30 IV 12/26/23 07:32 PREOP ONE Lactated Ringer's 1,000 mls @ 15 mls/hr 12/26/23 06:15 IV 12/31/23 19:34 .Q48H [facility] Protocol PFSH Medical History Wears glasses Wears partial dentures Wears dentures Restless legs Shortness of breath on exertion Non-smoker History of edema Home Medications ?Medication ?Instructions ?Recorded ?Last Taken ?Type docusate sodium 100 mg capsule 100 mg PO BID PRN PRN Constipation 05/21/19 Unknown Rx #60 caps plexus 2 tab PO TID 12/04/23 Unknown History Allergy/AdvReac Type Severity Reaction Status Date / Time No Known Allergies Allergy Verified 12/26/23 06:34 Family History Father Diabetes Mother Hypertension Brother Hypertension Surgical History delivery delivered Social History Smoking Status: Never smoker alcohol intake: current alcohol intake frequency: holidays/special occasions only Review of Systems (Anesthesia) ROS Narrative System reviewed and no additional complaints, except as documented.
[2023-12-26 07:15] LABS: Anion Gap 5 (5-15); BUN 16 mg/dL (7-18); BUN/Creat Ratio 20.6 RATIO (10-20); Calcium,Total 9.3 mg/dL (8.5-10.1); Chloride 108 mmol/L (98-107); Creatinine, Serum 0.78 mg/dL (0.55-1.02); EST Glomerular Filtration Rate 86 mL/min (>60); Est Glom Filt Rate - Afr Amer 104 mL/min (>60); Estimated Creatinine Clearance 107.09 ml/min; Glucose 99 mg/dL (74-106); Potassium 3.6 mmol/L (3.5-5.1); Sodium Level 142 mmol/L (136-145)
[2023-12-26] MEDS: Cefazolin 3 GM in Syringe 1 EACH IV (07:30)
--- NOTE | 2023-12-26 07:30 | HERN_PTH ---
PATIENT: ANKITA ELMORE LOC: [facility] [place] U#:[id number] AGE/SX: 43/F ROOM: RE12/26/[address]: Dr. Ana Goldstein MD : 1980 BED: DIS: 12/26/2023 SPEC #: [id number] RECD: 12/26/23 09:09 STATUS: DENY JAVON #: [id number] KIT: 12/26/23 07:[address]: Ana Goldstein DEPT: SURGICAL PATHOLOGY RECD BY: Hali Laureano ENTERED: 12/26/23 10:19 SP TYPE: Hernia OTHR DR: SKYLAR Bynum Tissues: HERNIA Procedures: Surgery Specimen Level II HEADER OPERATION: Hernia, open umbilical repair with mesh PRE-OP DIAGNOSIS: Umbilical hernia TISSUE SUBMITTED: Hernia sac and contents MICROSCOPIC DIAGNOSIS Hernia sac and contents: Fragments of fibroadipose and fibroconnective tissue, consistent with hernia sac with reactive changes. SJ.mr 12/29/2023 MICROSCOPIC DESCRIPTION Slides are reviewed. GROSS DESCRIPTION Received in fixative is one container labeled with the patient's name and designated Hernia sac and contents. The specimen consists of three variable sized pieces of pink-yellow soft tissue measuring in aggregate 6.5 x 4.0 x 1.5cm. Sections do not reveal any mass lesions. Production Lead sections are submitted in one cassette. 12/26/2023 TC:5 CPT:70706
[2023-12-26] MEDS: Bupivacaine Mpf 0.5% 30 ML VIAL (08:28)
--- NOTE | 2023-12-26 08:28 | PCM.OPRPT ---
Operative Report (Standard) Operative Information Surgery/Procedure Performed: Open umbilical hernia pair of mesh Surgeon: Ana Goldstein Date of Procedure: 12/26/23 Procedure Start Time: 07:49 Procedure Stop Time: 08:44 Pre-Operative Diagnosis: Umbilical hernia Post-Operative Diagnosis: Same Select all DRAINS/GRAFTS/IMPLANTS that apply: Prosthetic device Prosthetic device details: Ventralex ST hernia patch 4.3 cm Lot [id number] Type of Anesthesia: General/Supplemental Special Medications: Ancef 3 g IV x 1 Estimated Blood Loss: < 10 cc Specimen collected: Yes Description of specimen(s) removed: Hernia sac/contents Description of surgery: Patient was brought into the room placed supine on the operating table. Correct patient, procedure, site, positioning, special, was verified prior to procedure. General anesthesia was induced. The abdomen was prepped draped in usual sterile fashion. A curvilinear incision was made below the umbilicus with a 15 blade scalpel. This was deepened with electrocautery. A hemostat was used to go around the stalk of the umbilicus and Metzenbaum scissors was used to carefully divide the hernia sac from the skin of the umbilicus. Hernia sac was excised and sent to pathology. Peritoneum sac was closed with 2-0 Vicryl. The fascia around the hernia defect was cleared and the hernia defect measured 1.1 cm x 1.[address] hernia patch 4.3 cm was selected. This was secured laterally at its tails with 1 Prolene horizontal mattress suture. The hernia defect was closed with two [id number] 1 Prolene. The wound was irrigated with saline. Hemostasis was assured. The skin of the umbilicus was secured to the fascia using 3-0 Vicryl suture interrupted. The incision was closed with 3-0 Vicryl subdermal interrupted sutures and the skin was closed with interrupted 4-0 Monocryl sutures. Steri-Strips and Tegaderm and OpSite were placed over the incision once sterile cotton balls were placed in the umbilicus. Patient was extubated. Patient tolerated procedure well and was taken to the postanesthesia care unit in stable condition. Surgical Findings: Reducible umbilical hernia Sewage Screen Operator supervisor brake repair: Yes Hydroelectric Systems Technician: Batool Carpio Tasks completed by clinical laboratory assistant: Opening & closing Complications Complications: No
--- NOTE | 2023-12-26 08:31 | DCINST_ITS ---
Discharge Instructions Diet Discharge Diet: Light diet - advance as tolerated Activity Discharge Activity: May Not Drive (while taking narcotic pain medications.) and May Shower (If showering-- take Ziploc bag and tape off the surgery site x 5 days; otherwise lower shower and upper sponge bath. After 5 days okay to get incision wet.) May shower in (days): 1 Lifting Restrictions: no lifting >20 lbs x 2 wks, no strenuous exercise for 4 wks Dressing / Incision Call your doctor if your incision/area has: Continuous Slow Oozing, Sudden Increased Bleeding, Increased Pain/ Swelling, Increased Redness, Foul Smelling Discharge and Swelling at the incision site Call your doctor if you observe: Fever of 101 or Higher Remove Dressing in: 5 days (Keep dressing in place clean and dry for 5 days okay to remove, recommend placing cotton balls in the umbilicus x 2 more days and change daily) Cleanse incision/area with: Keep Dressing Clean & Dry (X 5 days) Additional Dressing/Incision Instructions:: Steri-Strips will fall off in 7 to 10 days, if they do not fall off okay to remove after 10 days. Follow Up Care Please Follow Up With: Ana Goldstein MD When: Call the office for a follow-up appointment 2 weeks; after 5 PM and on the weekends call [phone] with any concerns. Test Results: Test results from this visit will be discussed in further detail at your follow- up appointment, if applicable. Discharge Plan Admission Attending Provider: Ana Goldstein Primary Care Provider: Isabel Lazo Instructions Print Language: Citizen [place] Discharge Orders/Prescriptions Prescriptions: New oxycodone 5 mg capsule 5 mg PO Q6H PRN (Reason: pain) 3 Days Qty: 7 0RF Continued plexus 2 tab PO TID docusate sodium 100 MG capsule 100 mg PO BID PRN PRN (Reason: Constipation) Qty: 60 1RF Referrals / Follow Up: Care Physician,No Primary [Non-Staff] - Disposition Disposition (needs filled in before D/C Order can be placed): Home, Self Care
--- NOTE | 2023-12-26 08:53 | PCM.POST.ANE ---
Anesthesia: Postop Eval I Current Vital Signs Temperature: 97.6 F Pulse Rate: 108 Blood Pressure: 141/91 Respiratory Rate: 16 Pulse Ox: 93 Oxygen Delivery Method: Simple Mask Oxygen Flow Rate (L/min): 6 Assessment Airway patent: Yes Spontaneous unlabored respirations: Yes Mental status: Awake and Calm nausea: No Vomiting: No Anesthesia Complication: No Fluid Hydration Crystalloid volume administer (ml): 600 Total IV fluid infused: 600 Progress Note Anesthesia document: Postop Eval 1 completed: Yes
--- NOTE | 2023-12-26 11:45 | POSTOPAN2_ITS ---
Anesthesia Postop Eval I Sum Postop Eval Completion status Anesthesia document: Postop Eval 1 completed: Yes Anesthesia Postop Eval I Summary Anesthesia Postop Eval I Summary: Anesthesia Postop Eval I: Assessment Summary Airway patent Yes 12/26/23 08:54 ROOFING APPRENTICE.NOBLEOBLorena Spontaneous unlabored Yes 12/26/23 08:54 ROOFING APPRENTICE.ALEXIS respirations Mental status Awake,Calm 12/26/23 08:54 ROOFING APPRENTICE.NOBLEOBLorena nausea No 12/26/23 08:54 ROOFING APPRENTICE.NOBLEOBLorena Vomiting No 12/26/23 08:54 ROOFING APPRENTICE.NOBLEOBLorena Anesthesia Postop Eval I: Fluid Summary Crystalloid volume administer 600 12/26/23 08:54 ROOFING APPRENTICE.NOBLEOBY (ml) Colloids volume administered ( ml) Blood Product volume administered (ml) Total IV fluid infused 600 12/26/23 08:54 ROOFING APPRENTICE.ALEXIS Anesthesia Postop Eval I: Summary Notes Anesthesia Complication No 12/26/23 08:54 ROOFING APPRENTICE.ALEXIS Anesthesia Complication Comment: Post-operative progress note Anesthesia: Postop Eval II Evaluation Mental status: Awake and Calm Pain Level: 1 nausea: No Vomiting: No Complications Anesthesia Complication: No
--- NOTE | 2023-12-26 11:45 | PCM.POSTANE2 ---
Anesthesia Postop Eval I Sum Postop Eval Completion status Anesthesia document: Postop Eval 1 completed: Yes Anesthesia Postop Eval I Summary Anesthesia Postop Eval I Summary: Anesthesia Postop Eval I: Assessment Summary Airway patent Yes 12/26/23 08:54 SOLAR ENERGY SYSTEM INSTALLER.NOBLEOBLorena Spontaneous unlabored Yes 12/26/23 08:54 SOLAR ENERGY SYSTEM INSTALLER.ALEXIS respirations Mental status Awake,Calm 12/26/23 08:54 SOLAR ENERGY SYSTEM INSTALLER.NOBLEOBLorena nausea No 12/26/23 08:54 SOLAR ENERGY SYSTEM INSTALLER.NOBLEOBLorena Vomiting No 12/26/23 08:54 SOLAR ENERGY SYSTEM INSTALLER.NOBLEOBLorena Anesthesia Postop Eval I: Fluid Summary Crystalloid volume administer 600 12/26/23 08:54 SOLAR ENERGY SYSTEM INSTALLER.NOBLEOBY (ml) Colloids volume administered ( ml) Blood Product volume administered (ml) Total IV fluid infused 600 12/26/23 08:54 SOLAR ENERGY SYSTEM INSTALLER.ALEXIS Anesthesia Postop Eval I: Summary Notes Anesthesia Complication No 12/26/23 08:54 SOLAR ENERGY SYSTEM INSTALLER.ALEXIS Anesthesia Complication Comment: Post-operative progress note Anesthesia: Postop Eval II Evaluation Mental status: Awake and Calm Pain Level: 1 nausea: No Vomiting: No Complications Anesthesia Complication: No
== END 2023-12-26 11:20 | disposition home or self-care (01) ==
LOC: SDC 05:58 → AC 05:59
PROVIDERS: Anesthesiology; Referring Provider Surgery; Visit Provider Surgery
PROC: (CPT 49591; principal; 2023-12-26 07:15)
DX: K42.9 Umbilical hernia without obstruction or gangrene (principal); Z68.43 Body mass index [BMI] 50.0-59.9, adult; E66.9 Obesity, unspecified; Z87.891 Personal history of nicotine dependence
CPT/HCPCS: 49591; 00750; 80048; 81025; 88302; 93005; J7120; C1781; J2405